=== PATIENT | female | born 1975 | race Caucasian/White ===

== ENCOUNTER 2024-05-04 12:19 | Emergency (ER) | payer OTHER, SELFPAY ==
[2024-05-04 12:35] VITALS: BP 141/88
[2024-05-04 12:52] LABS: % Basophils 1.3 % (0-2); % Eosinophils 0.3 % (0-6); % Immature Granulocytes 0.3 % (0-0.5); % Lymphocytes 42.6 % (20.5-51.1); % Monocytes 9.8 % (1.7-9.3); % Neutrophils 45.7 % (42.2-75.2); Absolute Basophils 0.1 10^3/uL (0-0.2); Absolute Lymphocytes 1.6 10^3/uL (1.2-3.4); Absolute Monocytes 0.4 10^3/uL (0.1-0.6); Absolute Neutrophils 1.7 10^3/uL (1.4-6.5); Hematocrit 39.6 % (37.0-47.0); Hemoglobin 13.5 g/dL (12.0-16.0); Mean Corp Hgb Conc. 34.1 g/dL (33.0-37.0); Mean Corpuscular Hgb 29.5 pg (27.0-31.0); Mean Corpuscular Volume 86.5 fL (81.0-99.0); Mean Platelet Volume 9.5 fL (7.4-10.4); Nucleated Red Blood Cells % 0 %; Platelet Count 260 10^3/uL (130-400); Red Blood Cell Count 4.58 10^6/uL (4.20-5.40); Red Cell Dist. Width 12.9 % (11.5-14.5); White Blood Cell Count 3.8 10^3/uL (4.8-10.8)
[2024-05-04 13:09] LABS: HCG, Serum Qualitative Screen Negative
[2024-05-04 13:11] LABS: ALT (SGPT) 17 U/L (0-35); AST (SGOT) 23 U/L (14-36); Albumin 4.6 g/dl (3.5-5.0); Alkaline Phosphatase 48 U/L (38-126); Blood Urea Nitrogen 11 mg/dl (7-17); Calcium 9.8 mg/dl (8.4-10.2); Carbon Dioxide 30 mmol/L (22-30); Chloride 101 mmol/L (98-107); Glucose 96 mg/dl (70-99); Lipase 85 U/L (23-300); Potassium 3.6 mmol/L (3.5-5.1); Sodium 138 mmol/L (135-145); Total Bilirubin 0.6 mg/dl (0.2-1.3); Total Protein 6.9 g/dl (6.3-8.2); eGFR > 60.00
--- NOTE | 2024-05-04 16:13 | ED.GENMED ---
History of Present Illness
General
Chief Complaint: Abdominal Pain
Time Seen by Provider: 05/04/24 15:45
History of Present Illness
History of Present Illness:
49-year-old female without past medical history presenting to the emergency department for abdominal discomfort. Patient reports for the past 6 months, has had intermittent abdominal pain, associated after eating. She also has lost about 12 pounds
in the past 2 months, unintentional. She notes decreased appetite, and again pain with ingestion of food. Notes particularly carbohydrates. She has seen her primary care doctor and a GI specialist. She had a colonoscopy and endoscopy,
unremarkable. She also notes that she was tested for celiac's, negative. Denies any present chest pain. Denies any constitutional symptoms. Denies any urinary symptoms. Denies fever. Denies abdominal surgeries. Denies additional acute medical
complaints
Phy Exam
Physical Exam
Physical Exam:
General: Well-appearing, no clinical signs of dehydration, nontoxic and in no acute distress
HEENT: protecting airway
Neck: appears supple
CV: Normal heart rate, regular rhythm
Resp: No accessory muscle use, no increased work of breathing, lungs clear to auscultation bilaterally
Abd: Soft and non-distended, no tenderness to palpation
Extremities: No deformities, no swelling
Neuro: alert, no focal neurologic deficit
: deferred
Rectal: deferred
Psych: Normal affect
Skin: Intact
Course
Orders/Labs/Results
Orders:
Orders
05/04/24 12:39
Test Result ONCE
05/04/24 12:42
Complete Blood Count/With Diff Urgent
Comprehensive Metabolic Panel Urgent
HCG, Serum Qualitative Screen Urgent
Comment: Notify provider if positive test present
Lipase Urgent
05/04/24 16:06
CT Abd/pelvis W Iv Cont Urgent
Comment:
Reason For Exam: pain after eating
Abnormal Lab Results
05/04/24
12:42
WBC 3.8 L 10^3/uL
(4.8-10.8)
Monocytes % 9.8 H %
(1.7-9.3)
05/04/24 12:42
05/04/24 12:42
Vital Signs
Initial and Last Documented VS:
Initial Vital Signs
Temp Pulse Resp BP Pulse Ox
97.9 F 76 16 141/88 100
05/04/24 12:35 05/04/24 12:35 05/04/24 12:35 05/04/24 12:35 05/04/24 12:35
Last Documented Vital Signs
Temp Pulse Resp BP Pulse Ox
97.9 F 57 18 128/82 99
05/04/24 12:35 05/04/24 18:46 05/04/24 18:46 05/04/24 18:46 05/04/24 18:46
MDM/Problems Addressed
MDM/Problems Addressed:
49-year-old female presenting for abdominal discomfort after ingestion of food. Symptoms ongoing for about 6 months. Vital signs normal.
On exam patient is well-appearing, resting comfortably, currently asymptomatic. Patient symptoms appear consistent with gastrointestinal process, such as possible gluten insensitivity, notes issues with carbohydrates. Lower suspicion for severe
acute intra-abdominal process, afebrile, nontoxic. No present pain and symptoms ongoing for about 6 months. Process such as malignancy consideration, however notes that in November she had a colonoscopy and endoscopy, negative, lower suspicion.
Patient had screening laboratory analysis unremarkable. Notes that she saw her primary care doctor who recommended a CT scan. Explained unlikely to diagnose patient's symptoms, however given duration of symptoms, agreeable to obtaining at this
time.
20:30 - CT is negative for acute intra-abdominal process. At this time feel stable for discharge with continued close outpatient follow-up GI and PCP. Advised continued diet modification. Return precautions discussed and patient verbalized
understanding.
*Critical Care Note
Total Time (30-74mins, 75-104mins- exclusive of procedures): Not Applicable
ED Attending Note
-
Portions of this chart may have been created with voice recognition software.� Occasional wrong word or��sound alike� substitutions may have occurred due to the inherent limitations of voice recognition software.
Discharge Plan
Departure
Referrals:
Malissa Darnell, DO [Family Provider] -
Interventions
Interventions:
*Risk Screen - Suicide Last Done: 05/04/24 12:35
*General Assessment Last Done: 05/04/24 12:35
*Neglect/Abuse Screening Last Done: 05/04/24 12:35
*ED COVID-19 Vaccine History Last Done: 05/04/24 12:35
MS-Ademkd-Tsfqmtvsuv Assessment Last Done: 05/04/24 16:26
Discharge Date and Time
Print Language: [id number]
[2024-05-04 16:56] VITALS: BP 129/79
[2024-05-04 18:46] VITALS: BP 128/82
== END 2024-05-04 20:47 | disposition home or self-care (01) ==
LOC: EMR 12:19
PROVIDERS: Student in an Organized Health Care Education/Training Program; EMERGENCY PHYSICIAN Student in an Organized Health Care Education/Training Program; FAMILY PHYSICIAN Internal Medicine
DX: R10.9 Unspecified abdominal pain (principal)
CPT/HCPCS: 99285; 74177; 80053; 83690; 84703; 85025; Q9967